=== PATIENT | male | born 1970 | race Caucasian/White ===

== ENCOUNTER 2017-02-05 23:15 | Emergency (ER) | payer BC | END 2017-02-06 00:15 | disposition home or self-care (01) | LOC: ER1 23:15 | DX: Z53.21 Procedure and treatment not carried out due to patient leaving prior to being seen by health care provider (principal) ==

== ENCOUNTER 2021-02-17 23:43 | Emergency (ER) | payer BC ==
[2021-02-18] MEDS ORDERED: VALACYCLOVIR500 MG PO (03:28)
[2021-02-20 19:11] LABS: CHLAMYDIA TRACHOMATIS, NAA Negative (Negative); NEISSERIA GONORRHOEAE, NAA Negative (Negative)
== END 2021-02-18 03:55 | disposition home or self-care (01) ==
LOC: ER1 23:43
PROVIDERS: Family Medicine
DX: A60.01 Herpesviral infection of penis (principal); E11.9 Type 2 diabetes mellitus without complications; I10 Essential (primary) hypertension; F17.200 Nicotine dependence, unspecified, uncomplicated; Z88.5 Allergy status to narcotic agent; Z79.82 Long term (current) use of aspirin
CPT/HCPCS: 81001; 99283

== ENCOUNTER → 2021-05-02 | Outpatient (CLI) | payer BC ==
[~2021-05-02] MED LIST: ALLOPURINOL100 MG PO; AMARYL2 MG PO; FEXOFENADINE H180 MG PO; FLUTICASONE SPRAY; JANUVIA100 MG PO; LIPITOR20 MG PO; LISINOPRIL40 MG PO; LOW DOSE ASPIRI81 MG PO; METFORMIN HCL500 M2 PO; OXYCODONE HCL5 MG PO; PEPCID20 MG PO; PROBIOTIC1 EACH PO; PROTONIX20 MG PO; SINGULAIR10 MG PO; THEREMS MULTI400 MCG PO; VALACYCLOVIR500 MG PO; VITAMIN B12 PO; VITAMIN D350 MC3 PO; ZOFRAN4 MG PO
== END ==
LOC: CT 11:47
DX: R22.1 Localized swelling, mass and lump, neck (principal); R59.0 Localized enlarged lymph nodes; C11.9 Malignant neoplasm of nasopharynx, unspecified
CPT/HCPCS: 36415; 70491; 82565; 84520; Q9967

== ENCOUNTER 2021-05-26 16:04 | Emergency (ER) | payer BC ==
[~2021-05-26 16:04] MED LIST changes: -ALLOPURINOL100 MG PO; -AMARYL2 MG PO; -FEXOFENADINE H180 MG PO; -FLUTICASONE SPRAY; -JANUVIA100 MG PO; -LIPITOR20 MG PO; -LISINOPRIL40 MG PO; -LOW DOSE ASPIRI81 MG PO; -METFORMIN HCL500 M2 PO; -OXYCODONE HCL5 MG PO; -PEPCID20 MG PO; -PROBIOTIC1 EACH PO; -PROTONIX20 MG PO; -SINGULAIR10 MG PO; -THEREMS MULTI400 MCG PO; -VITAMIN B12 PO; -VITAMIN D350 MC3 PO; -ZOFRAN4 MG PO
[2021-05-26 16:49] LABS: HEMOGLOBIN 16.3 gm/dl (14.0-17.5); RED BLOOD COUNT 5.26 M/UL (4.20-5.50); WHITE BLOOD COUNT 14.6 K/UL (4.5-11.0)
[2021-05-26 17:08] LABS: BUN/CREATININE RATIO 17 (0-10)
[2021-07-03] MEDS ORDERED: FEXOFENADINE H180 MG PO (12:01)
[2021-07-03] MEDS ORDERED: FLUTICASONE SPRAY (12:02)
[2021-07-03] MEDS ORDERED: SINGULAIR10 MG PO (12:02)
[2021-07-03] MEDS ORDERED: LISINOPRIL40 MG PO (12:03)
[2021-07-03] MEDS ORDERED: AMARYL2 MG PO (12:03)
[2021-07-03] MEDS ORDERED: LIPITOR20 MG PO (12:03)
[2021-07-03] MEDS ORDERED: METFORMIN HCL500 M2 PO (12:04)
[2021-07-03] MEDS ORDERED: JANUVIA100 MG PO (12:04)
[2021-07-03] MEDS ORDERED: PROTONIX20 MG PO (12:04)
[2021-07-03] MEDS ORDERED: ZOFRAN4 MG PO (12:05)
[2021-07-03] MEDS ORDERED: VITAMIN D350 MC3 PO (12:06)
[2021-07-03] MEDS ORDERED: OXYCODONE HCL5 MG PO (12:06)
[2021-07-03] MEDS ORDERED: PEPCID20 MG PO (12:07)
[2021-07-03] MEDS ORDERED: LOW DOSE ASPIRI81 MG PO (12:08)
[2021-07-03] MEDS ORDERED: ALLOPURINOL100 MG PO (12:08)
[2021-07-03] MEDS ORDERED: THEREMS MULTI400 MCG PO (12:08)
[2021-07-03] MEDS ORDERED: VITAMIN B12 PO (12:09)
[2021-07-03] MEDS ORDERED: PROBIOTIC1 EACH PO (12:09)
== END 2021-05-26 16:56 | disposition home or self-care (01) ==
LOC: ER1 16:04
PROVIDERS: Physician Assistant
DX: G89.18 Other acute postprocedural pain (principal); Z90.89 Acquired absence of other organs; E11.9 Type 2 diabetes mellitus without complications; I10 Essential (primary) hypertension; Z88.5 Allergy status to narcotic agent; Z85.89 Personal history of malignant neoplasm of other organs and systems
CPT/HCPCS: 80053; 85025; 99283

== ENCOUNTER 2021-11-15 23:15 | Emergency (ER) | payer BC, OTHER ==
[~2021-11-15 23:15] MED LIST changes: +ALLOPURINOL100 MG PO; +AMARYL2 MG PO; +FEXOFENADINE H180 MG PO; +FLUTICASONE SPRAY; +JANUVIA100 MG PO; +LIPITOR20 MG PO; +LISINOPRIL40 MG PO; +LOW DOSE ASPIRI81 MG PO; +METFORMIN HCL500 M2 PO; +OXYCODONE HCL5 MG PO; +PEPCID20 MG PO; +PROBIOTIC1 EACH PO; +PROTONIX20 MG PO; +SINGULAIR10 MG PO; +THEREMS MULTI400 MCG PO; +VITAMIN B12 PO; +VITAMIN D350 MC3 PO; +ZOFRAN4 MG PO
[2021-11-15 23:54] LABS: HEMOGLOBIN 13.8 gm/dl (14.0-17.5); RED BLOOD COUNT 3.96 M/UL (4.20-5.50); WHITE BLOOD COUNT 2.5 K/UL (4.5-11.0)
[2021-11-16 00:18] LABS: BUN/CREATININE RATIO 29 (0-10)
[2021-11-16] MEDS ORDERED: MYCOSTATIN100000 UTS PO (02:47)
== END 2021-11-16 03:06 | disposition home or self-care (01) ==
LOC: ER1 23:15
PROVIDERS: Physician Assistant
DX: U07.1 COVID-19 (principal); E86.0 Dehydration; E11.9 Type 2 diabetes mellitus without complications; I10 Essential (primary) hypertension; Z88.5 Allergy status to narcotic agent; F17.210 Nicotine dependence, cigarettes, uncomplicated; D61.818 Other pancytopenia; C76.8 Malignant neoplasm of other specified ill-defined sites
CPT/HCPCS: 70450; 71045; 80053; 82550; 82553; 83605; 83690; 83874; 84484; 85025; 87040; 93005; 99284; J7030; U0002

== ENCOUNTER 2022-01-16 20:08 | Emergency (ER) | payer BC, OTHER ==
[~2022-01-16 20:08] MED LIST changes: +MYCOSTATIN100000 UTS PO
[2022-01-16 23:14] LABS: HEMOGLOBIN 13.6 gm/dl (14.0-17.5); RED BLOOD COUNT 3.91 M/UL (4.20-5.50); WHITE BLOOD COUNT 5.9 K/UL (4.5-11.0)
[2022-01-16 23:43] LABS: BUN/CREATININE RATIO 32 (0-10)
== END 2022-01-17 01:00 | disposition home or self-care (01) ==
LOC: ER1 20:08
PROVIDERS: Physician Assistant
DX: M54.50 Low back pain, unspecified (principal); M54.6 Pain in thoracic spine; C76.0 Malignant neoplasm of head, face and neck; C79.89 Secondary malignant neoplasm of other specified sites; E11.9 Type 2 diabetes mellitus without complications
CPT/HCPCS: 72129; 72132; 80053; 82550; 82553; 83605; 84484; 85025; 85652; 86140; 87040; 99284; J7030; Q9967

== ENCOUNTER → 2022-04-10 | Day surgery (SDC) | payer BC, OTHER ==
[~2022-04-10] MED LIST changes: +LEVOTHYROXINE75 MC1 PO
== END | disposition home or self-care (01) ==
LOC: OR 06:52
DX: C76.0 Malignant neoplasm of head, face and neck (principal); M10.9 Gout, unspecified; I10 Essential (primary) hypertension; E78.00 Pure hypercholesterolemia, unspecified; E11.9 Type 2 diabetes mellitus without complications; Z88.5 Allergy status to narcotic agent; Z79.82 Long term (current) use of aspirin
CPT/HCPCS: 71045; 77001; C1769; C1788; J0690; J1642; J2001; J2250; J2704; J3010; J7040

== ENCOUNTER → 2022-06-19 | Outpatient (CLI) | payer BC, OTHER | LOC: CT 08:12 | DX: C11.0 Malignant neoplasm of superior wall of nasopharynx (principal) | CPT/HCPCS: 70491; 71260; Q9967 ==